=== PATIENT | female | born 1955 | race Caucasian/White ===

== ENCOUNTER 2016-06-26 14:56 | Emergency (ER) | payer MEDICARE, OTHER ==
[2016-06-26 15:06] VITALS: RESP 18
--- NOTE | 2016-06-26 16:40 | ED ---
General Adult HPI - General Chief complaint: Fall Stated complaint: rt knee and back injury Time Seen by Provider: 06/26/16 15:51 Source: patient, RN notes reviewed Mode of arrival: ambulatory Limitations: no limitations - History of Present Illness Initial comments: This is a 60-year-old female who presents with right knee pain. Patient states she [place] the [place] and fell onto the right knee and also on her backside. Patient now complains of right knee pain and right ankle pain. Patient states she twisted the right knee when she fell. Patient has been ambulating with her cane. Patient states that she did not hit her head or lose consciousness. Patient complains of some mild neck pain and lower back pain. Patient denies any change in bowel or bladder function or loss of sensation to the saddle area. Patient denies any numbness/weakness or tingling. Patient denies any headache, nausea/vomiting. Patient denies being on any anticoagulants. Patient denies any recent fever, chills, shortness breath, chest pain, abdominal pain, diarrhea, hematuria, headache, or visual changes, or any other complaints. - Related Data Home Medications Medication Instructions Recorded Confirmed Atorvastatin [Lipitor] 20 mg PO HS 04/25/16 06/26/16 Cholecalciferol [Vitamin D3] 1,000 unit PO DAILY 04/25/16 06/26/16 Cyclobenzaprine [Flexeril] 10 mg PO TID 04/25/16 06/26/16 Divalproex [Depakote] 500 mg PO BID 04/25/16 06/26/16 Echinacea 500 mg PO QID 04/25/16 06/26/16 Fiber Therapy 2 tab PO BID 04/25/16 06/26/16 Fluticasone Nasal [place] [Flonase 2 spr EA NOSTRIL DAILY PRN 04/25/16 06/26/16 Nasal [place]] Gabapentin [Neurontin] 300 mg PO TID 04/25/16 06/26/16 Ibuprofen [Motrin] 800 mg PO TID PRN 04/25/16 06/26/16 Lisinopril 40 mg PO DAILY 04/25/16 06/26/16 Multivitamins, Thera [Multivitamin] 1 tab PO DAILY 04/25/16 06/26/16 Sertraline [Zoloft] 100 mg PO DAILY 04/25/16 06/26/16 Terbinafine [LamISIL] 250 mg PO DAILY 04/25/16 06/26/16 Polyethylene Glycol 3350 [Miralax] 17 gm PO DAILY PRN 06/26/16 06/26/16 Previous Rx's Medication Instructions Recorded Diazepam [Valium] 5 mg PO BID PRN #20 tab 04/26/16 Allergies Allergy/AdvReac Type Severity Reaction Status Date / Time codeine Allergy Unknown Verified 06/26/16 15:46 oxycodone Allergy Unknown Verified 06/26/16 15:46 Penicillins Allergy Swelling Verified 06/26/16 15:46 hydrocodone AdvReac Severe Constipatio Verified 06/26/16 15:46 n Review of Systems ROS Statement: Those systems with pertinent positive or pertinent negative responses have been documented in the HPI. ROS Other: All systems not noted in ROS Statement are negative. Past Medical History Past Medical History: Fibromyalgia, Hypertension History of Any Multi-Drug Resistant Organisms: None Reported Past Surgical History: Hysterectomy Past Psychological History: Anxiety, Bipolar, Depression Smoking Status: Current every day smoker Past Alcohol Use History: None Reported Past Drug Use History: Marijuana General Exam - General Exam Comments Initial Comments: General: The patient is awake and alert, in no distress, and does not appear acutely ill. Eye: Pupils are equal, round and reactive to light, extra-ocular movements are intact. No nystagmus. There is normal conjunctiva bilaterally. No signs of icterus. Neck: Mild cervical midline tenderness, but the pain is worse to the paraspinal muscles of the cervical spine with palpation. The neck is supple, there is no JVD. Cardiovascular: There is a regular rate and rhythm. No murmur, rub or gallop is appreciated. Respiratory: Lungs are clear to auscultation, respirations are non-labored, breath sounds are equal. No wheezes, stridor, rales, or rhonchi. Musculoskeletal: Patient is tender over the medial lateral joint lines of the right knee and also to the anterior portion of the right knee. Patient is tender to palpation over the lateral malleolus into the lateral aspect of the right foot. Patient also complains of tenderness to palpation of the lumbar spine and cervical spine. Normal ROM, Strength 5/5. Sensation intact. Radial pulses equal bilaterally 2+. Dorsalis pedis pulses 2+ bilaterally, posterior tibial pulses 2+ bilaterally. Capillary refill is normal at less than 2 seconds. Neurological: A&O x 3. CN II-XII intact, There are no obvious motor or sensory deficits. Coordination appears grossly intact. Speech is normal. Skin: Skin is warm and dry and no rashes or lesions are noted. Psychiatric: Cooperative, appropriate mood & affect, normal judgment. Limitations: no limitations Course Vital Signs 06/26/16 06/26/16 15:01 17:39 Temperature 97.4 F L 98.2 F Pulse Rate 87 72 Respiratory 18 18 Rate Blood Pressure 196/100 153/86 O2 Sat by Pulse 98 93 L Oximetry Medical Decision Making - Medical Decision Making This is a 60-year-old female who presents after a fall that happened day. On physical exam Patient is tender over the medial lateral joint lines of the right knee and also to the anterior portion of the right knee. Mild ecchymosis to the anterior portion of the right knee. No effusion. Patient is tender to palpation over the lateral malleolus into the lateral aspect of the right foot. Patient also complains of tenderness to palpation of the lumbar spine and cervical spine. Normal ROM, Strength 5/5. Sensation intact. Radial pulses equal bilaterally 2+. Dorsalis pedis pulses 2+ bilaterally, posterior tibial pulses 2+ bilaterally. Capillary refill is normal at less than 2 seconds. X-rays were done and reviewed showing: X-ray lumbar spine: No acute fracture dislocation is seen in the lumbar spine. X-ray knee right: There is no acute fracture or dislocation. X-ray ankle complete right: There is no acute fracture or dislocation seen. X-ray right foot: There is no acute fracture dislocation. X-ray cervical spine: No acute fracture dislocation is seen in the cervical spine. Reports read by Dr. Márquez. I discussed the results with the patient. I discussed rest, ice, elevate and use Александр wrap for compression. Discussed use of Aircast splint as needed for right ankle. Discussed use of crutches but patient states she uses her cane for ambulation. Patient requested a prescription for crutches just in case. I discussed [id number] Tylenol and or Motrin as needed for any pain. Patient was requesting a refill of her Valium. I discussed that the patient should follow-up with her primary care provider for this. Patient was receptive to this plan patient was discharged home. Discussed return parameters. Discussed that patient should follow up with PCP in one to 2 days or return to the [facility] for any worsening symptoms or for any further concerns. Patient was receptive to this plan and patient will be discharged home. I discussed his case with attending physician Dr. Pérez who agrees the plan as stated above. Disposition Clinical Impression: Right knee sprain, Right ankle sprain Disposition: HOME SELF-CARE Condition: Good Instructions: Knee Sprain (ED) Additional Instructions: Please rest, ice, elevate and use Александр wrap for compression. Please use Aircast splint to right ankle as needed while walking. Please use [id number] Tylenol or Motrin as needed for any pain. Please follow-up with family doctor in the next 2 days of symptoms have not improved. Please return to emergency room if the symptoms increase or worsen or for any other concerns. Referrals: None,Stated [Primary Care Provider] - 1-2 days Elissa Bhakta MD [STAFF PHYSICIAN] - 1-2 days Time of Disposition: 17:21
--- NOTE | 2016-06-26 17:04 | XR ---
EXAMINATION TYPE: XR knee complete RT DATE OF EXAM: 06/26/2016 4:57 PM CLINICAL HISTORY: pain TECHNIQUE: Three views of the right knee are obtained. COMPARISON: None. FINDINGS: There is no acute fracture/dislocation. The tri-compartment joint spaces appear within no rmal limits. Small joint effusion noted. The overlying soft tissue appears unremarkable. IMPRESSION: There is no acute fracture or dislocation.ICD 10 NO FRACTURE, INITIAL EVALUATION
--- NOTE | 2016-06-26 17:05 | XR ---
EXAMINATION TYPE: XR ankle complete RT, XR foot complete RT DATE OF EXAM: 06/26/2016 4:57 PM COMPARISON: NONE HISTORY: Pain TECHNIQUE: Frontal, lateral and oblique images of the right ankle are obtained. COMPARISON: None. FINDINGS: There is no acute fracture/dislocation evident. The joint spaces appear within normal moreira its. The overlying soft tissue appears unremarkable. IMPRESSION: There is no acute fracture or dislocation seen. EXAMINATION TYPE: XR ankle complete RT, XR foot complete RT DATE OF EXAM: 06/26/2016 4:57 PM CLINICAL HISTORY: pain TECHNIQUE: Frontal, lateral and oblique images of the right foot are obtained. COMPARISON: None. FINDINGS: There is no acute fracture/dislocation evident. Well-corticated ossific densities adjacent to the tarsonavicular and cuboid are likely chronic in nature. Degenerative change first metatarsoph alangeal joint. The joint spaces appear within normal limits. The overlying soft tissue appears unr emarkable. IMPRESSION: There is no acute fracture or dislocation. ICD 10 NO FRACTURE, INITIAL EVALUATION
--- NOTE | 2016-06-26 17:06 | XR ---
EXAMINATION TYPE: XR cervical spine comp DATE OF EXAM: 06/26/2016 4:57 PM CLINICAL HISTORY: pain COMPARISON: NONE TECHNIQUE: Frontal, lateral, oblique, swimmers, and open mouth view of the cervical spine are obtaine d. FINDINGS: The cervical spine is visualized in its entirety from C1 thru the top of T1 level. It is s atisfactory in alignment without evidence of acute fracture or dislocation. The pre-vertebral soft t issue appears within normal limits. [id number]-[id number] degenerative narrowing and spondylosis. The C1-C 2 articulation is unremarkable on the open mouth view. The oblique images are within normal limits. IMPRESSION: No acute fracture or dislocation is seen in the cervical spine.ICD 10 NO FRACTURE, INITI AL EVALUATION
--- NOTE | 2016-06-26 17:06 | XR ---
EXAMINATION TYPE: XR lumbar spine 2 or 3V DATE OF EXAM: 06/26/2016 4:57 PM CLINICAL HISTORY: pain TECHNIQUE: Three views of the lumbar spine are submitted. COMPARISON: None. FINDINGS: There are 5 lumbar type vertebral bodies identified. The lumbar spine shows satisfactory alignment w ithout evidence of acute fracture or dislocation. Vertebral body heights are within normal limits. Moderate to severe degenerative narrowing at L4-5. Mild narrowing at the remaining levels. The overl aria soft tissue appears unremarkable. IMPRESSION: No acute fracture or dislocation is seen in the lumbar spine. ICD 10 NO FRACTURE, INITIAL EVALUATION
[2016-06-26 17:40] VITALS: BP 153/86; PULSE 72; TEMP 98.2
== END 2016-06-26 17:41 | disposition home or self-care (01) ==
LOC: EC 14:56
DX: S83.91XA Sprain of unspecified site of right knee, initial encounter (principal); S93.401A Sprain of unspecified ligament of right ankle, initial encounter; M54.5 Low back pain; M54.2 Cervicalgia; W01.0XXA Fall on same level from slipping, tripping and stumbling without subsequent striking against object, initial encounter; Y92.89 Other specified places as the place of occurrence of the external cause; I10 Essential (primary) hypertension; F41.9 Anxiety disorder, unspecified; F32.9 Major depressive disorder, single episode, unspecified; Z79.899 Other long term (current) drug therapy; Z88.5 Allergy status to narcotic agent; F17.200 Nicotine dependence, unspecified, uncomplicated; Z88.0 Allergy status to penicillin; Z79.51 Long term (current) use of inhaled steroids
CPT/HCPCS: 72050; 72100; 99283

== ENCOUNTER → 2016-08-04 | Outpatient (CLI) | payer MEDICARE, OTHER ==
--- NOTE | 2016-08-04 13:12 | MR ---
EXAMINATION TYPE: MR knee RT wo con DATE OF EXAM: 08/04/2016 1:00 PM COMPARISON: NONE HISTORY: acute pain in right knee TECHNIQUE: Multiplanar, multiecho imaging of the right knee is performed without IV contrast. FINDINGS: There is a small amount of joint fluid. There is grade IV chondromalacia involving the patellar apex. There is grade I to II chondromalacia i nvolving the weightbearing surface of the lateral femoral condyle. There is grade II to III chondroma lacia involving the weightbearing surface of the medial femoral condyle. There is a microtrabecular fracture of the posterior aspect of the lateral tibial plateau with some s urrounding osseous edema. There is an associated tear of the anterior cruciate ligament. This is at l east near-complete. Some residual fibers may be present. The posterior cruciate ligament is intact. T here is some minimal osseous edema involving the sulcus terminalis. There are remodeling changes in the medial compartment of the knee. Both the medial and lateral collateral ligament complexes are intact. Iliotibial band inserts normall y upon Gerdy's tubercle. The popliteus muscle and tendon are normal. Both the quadriceps and patellar tendons are intact. There is a small amount of swelling in the Hoffa fat space. I do not see evidence of a meniscal tear. IMPRESSION: 1. COMPLETE OR NEAR-COMPLETE TEAR OF THE ANTERIOR CRUCIATE LIGAMENT. 2. MICROTRABECULAR FRACTURE INVOLVING THE POSTERIOR ASPECT OF THE LATERAL TIBIAL PLATEAU. 3. CHONDROMALACIA DESCRIBED.
== END | disposition home or self-care (01) ==
LOC: RADMRIMAIN 12:22
PROVIDERS: ATTEND Family Medicine
DX: S83.511A Sprain of anterior cruciate ligament of right knee, initial encounter (principal); M22.41 Chondromalacia patellae, right knee

== ENCOUNTER 2016-12-07 14:37 | Observation (INO) | payer MEDICARE, OTHER ==
[2016-12-07 15:48] LABS: Basophils % (A) 0 %; CH 29.5; Eosinophils # (A) 0.1 k/uL (0-0.7); Eosinophils % (A) 1 %; HCT 35.4 % (34.0-46.0); HDW 2.55; HGB 12.8 gm/dL (11.4-16.0); Luc # (Auto) 0.17; Luc % (Auto) 2; Lymphocytes # (A) 3.4 k/uL (1.0-4.8); Lymphocytes % (A) 43 %; MCH 30.7 pg (25.0-35.0); MCHC 36.2 g/dL (31.0-37.0); MCV 84.8 fL (80.0-100.0); Mean Platelet Volume 8.6; Monocytes # (A) 0.4 k/uL (0-1.0); Monocytes % (A) 5 %; Neutrophils # (A) 3.9 k/uL (1.3-7.7); Neutrophils % (A) 49 %; RBC 4.18 m/uL (3.80-5.40); RDW 14.4 % (11.5-15.5); WBC 7.9 k/uL (3.8-10.6); WBC (Perox) 7.62
[2016-12-07 15:58] LABS: ALT 31 U/L (9-52); AST 32 U/L (14-36); Alkaline Phosphatase 58 U/L (38-126); Anion Gap 11 mmol/L; Blood Urea Nitrogen 18 mg/dL (7-17); Carbon Dioxide 23 mmol/L (22-30); Chloride 109 mmol/L (98-107); Glucose 78 mg/dL (74-99); Magnesium 1.9 mg/dL (1.6-2.3); Non-African American GFR(MDRD) >60 (>60 ml/min/1.73 sqM); Potassium 4.5 mmol/L (3.5-5.1); Sodium 143 mmol/L (137-145); Total Bilirubin 0.4 mg/dL (0.2-1.3); Total Protein 7.2 g/dL (6.3-8.2)
[2016-12-07 16:03] LABS: INR 1.2 (<1.1); Partial Thromboplastin Time 24.7 sec (22.0-30.0); Prothrombin Time 11.7 sec (9.0-12.0)
[2016-12-07 16:07] LABS: Creatine Kinase 129 U/L (30-135)
--- NOTE | 2016-12-07 16:12 | XR ---
EXAMINATION TYPE: XR chest 2V DATE OF EXAM: 12/07/2016 COMPARISON: 04/25/2016 HISTORY: 61-year-old female with chest pain TECHNIQUE: PA and lateral views FINDINGS: Heart is normal size. Similar tortuosity of the aorta. Mild diffuse interstitial prominence of the ch ronic appearance. No consolidation or pleural effusion. Strandy atelectasis at the left base. IMPRESSION: Chronic changes without acute cardiopulmonary process.
[2016-12-07 16:20] LABS: Creatine Kinase MB 1.8 ng/mL (0.0-2.4); Troponin I <0.012 ng/mL (0.000-0.034)
[2016-12-07] MEDS ORDERED: ONDANSETRON 4 MG/2 ML VIAL IVP STA (16:43)
[2016-12-07] MEDS ORDERED: ASPIRIN 325 MG TAB PO STA (16:43)
[2016-12-07] MEDS ORDERED: MORPHINE SULFATE 4 MG/ML SYRINGE IVP STA (16:45)
[2016-12-07] MEDS ORDERED: ONDANSETRON 4 MG/2 ML VIAL IVP PRN (16:54)
[2016-12-07] MEDS ORDERED: NALOXONE 0.4 MG/ML 1 ML VIAL IV PRN (16:54)
[2016-12-07] MEDS ORDERED: NITROGLYCERIN SL TABS 0.4 MG TAB SUBLINGUAL PRN (19:33)
[2016-12-07] MEDS: MORPHINE SULFATE 4 MG/ML SYRINGE IV PRN (19:50)
[2016-12-07] MEDS ORDERED: FLUTICASONE 50MCG/SPRAY NASAL 16GM EA NOSTRIL PRN (20:28)
[2016-12-07] MEDS ORDERED: CYCLOBENZAPRINE 10 MG TAB PO PRN (20:28)
[2016-12-07] MEDS ORDERED: IBUPROFEN 800 MG TAB PO PRN (20:28)
[2016-12-07] MEDS: GABAPENTIN 300 MG CAP PO SCH (21:25)
[2016-12-07] MEDS: DIVALPROEX 500 MG TABLET.DR PO SCH (21:25)
[2016-12-07 22:15] LABS: Creatine Kinase 113 U/L (30-135)
[2016-12-07 22:28] LABS: Creatine Kinase MB 1.8 ng/mL (0.0-2.4); Troponin I <0.012 ng/mL (0.000-0.034)
[2016-12-08] MEDS: MORPHINE SULFATE 4 MG/ML SYRINGE IV PRN ×3 (00:21→19:41)
--- NOTE | 2016-12-08 00:54 | ED ---
General Adult HPI - General Chief complaint: Chest Pain Stated complaint: Sent by PCP Abd EKG Time Seen by Provider: 12/07/16 15:16 Source: patient, RN notes reviewed Mode of arrival: wheelchair Limitations: no limitations - History of Present Illness Initial comments: 7-year-old female with past medical history of hypertension, fibromyalgia, and osteoarthritis presents with left-sided and mid chest pain. Patient describes the pain as a pressure-like sensation. Patient does associate the pain with some nausea and no vomiting. States the pain began approximately one hour prior to arrival. Denies any abdominal pain. Patient has never had chest pain in the past. She has had no cardiology workup. She does have a positive family history of heart disease in her father who had a myocardial infarction at the age of 54. Patient recently quit tobacco approximately 2 weeks ago. - Related Data Home Medications Medication Instructions Recorded Confirmed Atorvastatin [Lipitor] 20 mg PO DAILY 04/25/16 12/07/16 Cyclobenzaprine [Flexeril] 10 mg PO TID PRN 04/25/16 12/07/16 Divalproex [Depakote] 500 mg PO TID 04/25/16 12/07/16 Fluticasone Nasal [place] [Flonase 2 spr EA NOSTRIL DAILY PRN 04/25/16 12/07/16 Nasal [place]] Gabapentin [Neurontin] 300 mg PO DAILY 04/25/16 12/07/16 Ibuprofen [Motrin] 800 mg PO TID PRN 04/25/16 12/07/16 Lisinopril 40 mg PO DAILY 04/25/16 12/07/16 Multivitamins, Thera [Multivitamin] 1 tab PO DAILY 04/25/16 12/07/16 Sertraline [Zoloft] 100 mg PO DAILY 04/25/16 12/07/16 Echinacea 780mg 1,560 mg PO TID 12/07/16 12/07/16 Gabapentin [Neurontin] 600 mg PO HS 12/07/16 12/07/16 Levothyroxine Sodium [Synthroid] 50 mcg PO DAILY 12/07/16 12/07/16 Allergies Allergy/AdvReac Type Severity Reaction Status Date / Time codeine Allergy Unknown Verified 12/07/16 16:10 oxycodone Allergy Unknown Verified 12/07/16 16:10 Penicillins Allergy Swelling Verified 12/07/16 16:10 hydrocodone AdvReac Severe Constipatio Verified 12/07/16 16:10 n Review of Systems ROS Statement: Those systems with pertinent positive or pertinent negative responses have been documented in the HPI. ROS Other: All systems not noted in ROS Statement are negative. Past Medical History Past Medical History: Fibromyalgia, Hyperlipidemia, Hypertension, Thyroid Disorder Additional Past Medical History / Comment(s): "FATTY LIVER" " I HAD A HEART MURMUR WHEN I WAS WITH MY SON IN 1980" "IN 1976 HOSPITALIZED A WEEK FOR KIDNEY INFECETION", IBS, PT ON DEPAKOTE FOR BIPOLAR NOT SEIZURES.DDD/SPINE, "HERNIATED DISCS", PAST MIGRAINES,NEUROPATHY, History of Any Multi-Drug Resistant Organisms: None Reported Past Surgical History: Hysterectomy, Tonsillectomy Additional Past Surgical History / Comment(s): "TOTAL HYSTERECTOMY", COLONOSCOPY /POLYPECTOMY(BENIGN) Past Anesthesia/Blood Transfusion Reactions: Motion Sickness Additional Past Anesthesia/Blood Transfusion Reaction / Comment(s): IN THE AFTER SX HAD DIFFICULTY WAKING. CLAUSTERPHOBIA. Smoking Status: Former smoker - Past Family History Father Family Medical History: Hypertension, Osteoarthritis (OA) Mother Family Medical History: Cancer, Coronary Artery Disease (CAD), Myocardial Infarction (NM) General Exam Limitations: no limitations General appearance: alert, in no apparent distress Head exam: Present: atraumatic, normocephalic Eye exam: Present: normal appearance, PERRL ENT exam: Present: normal exam, mucous membranes moist Neck exam: Present: normal inspection, full ROM Respiratory exam: Present: normal lung sounds bilaterally, respiratory distress Cardiovascular Exam: Present: regular rate, normal rhythm GI/Abdominal exam: Present: soft. Absent: distended, tenderness Extremities exam: Present: normal inspection, normal capillary refill. Absent: pedal edema Neurological exam: Present: alert, oriented X3 Psychiatric exam: Present: normal affect, normal mood Skin exam: Present: warm, dry. Absent: diaphoretic Course Vital Signs 12/07/16 12/07/16 12/07/16 14:40 15:39 16:42 Temperature 99.0 F 97.8 F Pulse Rate 88 70 Pulse Rate [ 76 Right Radial] Respiratory 20 18 Rate Blood Pressure 133/88 102/66 O2 Sat by Pulse 98 96 Oximetry 12/07/16 17:30 Temperature 97.9 F Pulse Rate 79 Pulse Rate [ Right Radial] Respiratory 18 Rate Blood Pressure 131/88 O2 Sat by Pulse 96 Oximetry EKG Findings - EKG Comments: EKG Findings:: EKG obtained at 1524 shows normal sinus rhythm at a rate of 73, WI interval 1:30, QS duration 78, QTC is 484. There is no ST segment elevation , there is biphasic T wave in V2 and T-wave inversion in the 3 4 5 and 6. EKG obtained at 1720 shows a ventricular rate of 65 normal sinus rhythm, WI interval 134, QRS duration 84, QTC is 42, no change in T waves from previous EKG , no worsening signs of ischemia. Medical Decision Making - Medical Decision Making 61-year-old female presenting with a one hour history of left-sided chest pressure and nausea. Patient has had no cardiac workup in the past. EKG does show T-wave abnormality in the precordium however this is unchanged over approximately 2 hour period. Patient's lipase is mildly elevated and although this is unlikely to be the cause of her pain she will be treated with IV fluids and pain medication. Patient will be placed in observation for serial cardiac enzymes and cardiology evaluation. - Lab Data Result diagrams: 12/07/16 15:36 12/07/16 15:36 Lab Results 12/07/16 12/07/16 12/07/16 Range/Units 15:36 15:36 15:36 WBC 7.9 (3.8-10.6) k/uL RBC 4.18 (3.80-5.40) m/uL Hgb 12.8 (11.4-16.0) gm/dL Hct 35.4 (34.0-46.0) % MCV 84.8 (80.0-100.0) fL MCH 30.7 (25.0-35.0) pg MCHC 36.2 (31.0-37.0) g/dL RDW 14.4 (11.5-15.5) % Plt Count 181 (150-450) k/uL Neutrophils % 49 % Lymphocytes % 43 % Monocytes % 5 % Eosinophils % 1 % Basophils % 0 % Neutrophils # 3.9 (1.3-7.7) k/uL Lymphocytes # 3.4 (1.0-4.8) k/uL Monocytes # 0.4 (0-1.0) k/uL Eosinophils # 0.1 (0-0.7) k/uL Basophils # 0.0 (0-0.2) k/uL PT (9.0-12.0) sec INR (<1.1) APTT (22.0-30.0) sec Sodium 143 (137-145) mmol/L Potassium 4.5 (3.5-5.1) mmol/L Chloride 109 H (98-107) mmol/L Carbon Dioxide 23 (22-30) mmol/L Anion Gap 11 mmol/L BUN 18 H (7-17) mg/dL Creatinine 0.70 (0.52-1.04) mg/dL Est GFR (MDRD) Af Amer >60 (>60 ml/min/1.73 sqM) Est GFR (MDRD) Non-Af >60 (>60 ml/min/1.73 sqM) Glucose 78 (74-99) mg/dL Calcium 10.0 (8.4-10.2) mg/dL Magnesium 1.9 (1.6-2.3) mg/dL Total Bilirubin 0.4 (0.2-1.3) mg/dL AST 32 (14-36) U/L ALT 31 (9-52) U/L Alkaline Phosphatase 58 (38-126) U/L Total Creatine Kinase 129 (30-135) U/L CK-MB (CK-2) 1.8 (0.0-2.4) ng/mL CK-MB (CK-2) Rel Index 1.4 Troponin I <0.012 (0.000-0.034) ng/mL NT-Pro-B Natriuret Pep pg/mL Total Protein 7.2 (6.3-8.2) g/dL Albumin 4.7 (3.5-5.0) g/dL Lipase 331 H (23-300) U/L Stool Occult Blood (Negative) 12/07/16 12/07/16 12/07/16 Range/Units 15:36 15:36 15:36 WBC (3.8-10.6) k/uL RBC (3.80-5.40) m/uL Hgb (11.4-16.0) gm/dL Hct (34.0-46.0) % MCV (80.0-100.0) fL MCH (25.0-35.0) pg MCHC (31.0-37.0) g/dL RDW (11.5-15.5) % Plt Count (150-450) k/uL Neutrophils % % Lymphocytes % % Monocytes % % Eosinophils % % Basophils % % Neutrophils # (1.3-7.7) k/uL Lymphocytes # (1.0-4.8) k/uL Monocytes # (0-1.0) k/uL Eosinophils # (0-0.7) k/uL Basophils # (0-0.2) k/uL PT 11.7 (9.0-12.0) sec INR 1.2 (<1.1) APTT 24.7 (22.0-30.0) sec Sodium (137-145) mmol/L Potassium (3.5-5.1) mmol/L Chloride (98-107) mmol/L Carbon Dioxide (22-30) mmol/L Anion Gap mmol/L BUN (7-17) mg/dL Creatinine (0.52-1.04) mg/dL Est GFR (MDRD) Af Amer (>60 ml/min/1.73 sqM) Est GFR (MDRD) Non-Af (>60 ml/min/1.73 sqM) Glucose (74-99) mg/dL Calcium (8.4-10.2) mg/dL Magnesium (1.6-2.3) mg/dL Total Bilirubin (0.2-1.3) mg/dL AST (14-36) U/L ALT (9-52) U/L Alkaline Phosphatase (38-126) U/L Total Creatine Kinase (30-135) U/L CK-MB (CK-2) (0.0-2.4) ng/mL CK-MB (CK-2) Rel Index Troponin I (0.000-0.034) ng/mL NT-Pro-B Natriuret Pep 1240 pg/mL Total Protein (6.3-8.2) g/dL Albumin (3.5-5.0) g/dL Lipase (23-300) U/L Stool Occult Blood Negative (Negative) Disposition Clinical Impression: Chest pain Disposition: ADMITTED IP TO THIS [facility] Condition: Stable Decision to Admit Reason: Admit from [facility]
[2016-12-08 03:47] LABS: Basophils % (A) 0 %; CH 29.4; CHCM 32.9; Eosinophils # (A) 0.1 k/uL (0-0.7); Eosinophils % (A) 1 %; HCT 38.3 % (34.0-46.0); HDW 2.47; HGB 12.9 gm/dL (11.4-16.0); Luc % (Auto) 3; Lymphocytes # (A) 3.1 k/uL (1.0-4.8); Lymphocytes % (A) 38 %; MCH 30.2 pg (25.0-35.0); MCHC 33.6 g/dL (31.0-37.0); Mean Platelet Volume 8.1; Monocytes # (A) 0.5 k/uL (0-1.0); Monocytes % (A) 6 %; Neutrophils # (A) 4.3 k/uL (1.3-7.7); Neutrophils % (A) 53 %; RBC 4.26 m/uL (3.80-5.40); RDW 14.2 % (11.5-15.5); WBC 8.2 k/uL (3.8-10.6); WBC (Perox) 8.65
[2016-12-08 03:57] LABS: MCV 89.9 fL (80.0-100.0)
[2016-12-08 04:00] LABS: Anion Gap 11 mmol/L; Blood Urea Nitrogen 21 mg/dL (7-17); Calcium 9.6 mg/dL (8.4-10.2); Carbon Dioxide 26 mmol/L (22-30); Chloride 103 mmol/L (98-107); Glucose 90 mg/dL (74-99); Non-African American GFR(MDRD) >60 (>60 ml/min/1.73 sqM); Potassium 4.4 mmol/L (3.5-5.1); Sodium 140 mmol/L (137-145)
[2016-12-08 04:03] LABS: Creatine Kinase 112 U/L (30-135)
[2016-12-08 04:16] LABS: Creatine Kinase MB 1.9 ng/mL (0.0-2.4); Troponin I <0.012 ng/mL (0.000-0.034)
[2016-12-08] MEDS: LEVOTHYROXINE 50 MCG TAB PO SCH (06:28)
[2016-12-08] MEDS ORDERED: ATORVASTATIN 20 MG TAB PO SCH (09:00)
[2016-12-08] MEDS ORDERED: ASPIRIN 325 MG TAB PO STA (09:12)
[2016-12-08] MEDS ORDERED: SODIUM CHLORIDE 0.9% 1,000 ML in EMPTY BAG 1 BAG IV ONE (09:12)
[2016-12-08] MEDS ORDERED: ALPRAZolam 0.5 MG TAB PO PRN (09:12)
[2016-12-08] MEDS ORDERED: ATORVASTATIN 80 MG TAB PO STA (09:12)
[2016-12-08] MEDS ORDERED: ALPRAZolam 0.25 MG TAB PO PRN (09:12)
[2016-12-08] MEDS ORDERED: NITROGLYCERIN SL TABS 0.4 MG TAB SUBLINGUAL PRN (09:12)
[2016-12-08] MEDS: LISINOPRIL 20 MG TAB PO SCH (09:41)
[2016-12-08] MEDS: SERTRALINE 100 MG TAB PO SCH (09:42)
[2016-12-08] MEDS: DIVALPROEX 500 MG TABLET.DR PO SCH ×3 (09:42→19:42)
[2016-12-08] MEDS: GABAPENTIN 300 MG CAP PO SCH ×2 (09:42→19:41)
[2016-12-08] MEDS: SODIUM CHLORIDE 0.9% 1,000 ML IV SCH ×3 (09:48→15:18)
--- NOTE | 2016-12-08 13:33 | CONS ---
Paola Leonard is a 61-year-old lady with a diagnosis of fibromyalgia, hypertension, hypercholesterolemia, degenerative joint disease and also has some underlying depression. She also had hypothyroidism. She apparently last time visited a hospital was in [place] about a year ago. She went to see her primary care physician, Dr. Galan, and indicated to her that she has chest pain all the time. EKG was performed, revealed precordial ST-T changes raising the possibility of ischemia and she has been advised to come to the hospital. She denies any chest discomfort at the time of my evaluation, but yesterday and also for the last year on and off she feels a pressure like sensation in random fashion almost always unrelated to physical activity. About 2 weeks ago, she quit smoking. She has a family history of premature CAD with her father having had an GA at 54 years of age. She is resting comfortably without symptoms. PAST MEDICAL HISTORY: 1. Hypercholesterolemia. 2. Hypertension. 3. History of depression. 4. Hypothyroidism. 5. No documented evidence of prior myocardiac infarction or CVA. She is status post hysterectomy and tonsillectomy. Medications at home include Gabapentin, Zoloft, Synthroid 50 mcg daily, multivitamins, Lipitor 20 mg daily, Flexeril 10 mg daily, lisinopril 40 mg daily. She also takes Flonase nasal spray and Neurontin. ALLERGIES: OXYCODONE, CODEINE, PENICILLIN. Review of systems are unremarkable other than above mentioned facts. On examination, blood pressure is 110/70, pulse rate 70 per minute and regular. HEENT: Unremarkable. Fundus was not examined by me. NECK: Supple. No JVD. I do not hear a carotid bruit. There is no thyromegaly. Heart exam reveals S1 and S2 heard normally. No rub, murmur or gallop. Lungs are clear. Abdomen is soft, nontender. Lower extremities reveal normal pulses. No edema. Central nervous system is normal. EKG revealed a sinus mechanism with precordial ST-T changes as well as ST-T change in 1 and aVL, raising the possibility of ischemia in the anterolateral wall. Laboratory data revealed unremarkable troponins. Three sets are available. Renal function is normal. Hemoglobin is 12.9. Her lipase was slightly elevated, but it is back in the normal range. IMPRESSION: 1. Atypical chest pain. 2. Abnormal EKG, cannot rule out ischemia. 3. Hypertension. 4. Hyperlipidemia. 5. Family history of coronary artery disease. 6. History of smoking, which she quit 2 weeks ago. RECOMMENDATIONS: I am recommending that we will obtain an old EKG from [place]. If this EKG is similar to the one here, I will proceed with a Lexiscan stress test. However, if the EKG changes are new I would recommend cardiac catheterization. Rationale, risks, benefits and options are explained to the patient. She understands all details and wishes to proceed with the procedure if the EKG changes are new. Thank you very much for the consult. [place]
[2016-12-08] MEDS ORDERED: SODIUM CHLORIDE 0.9% 1,000 ML IV ONE (13:40)
[2016-12-08] MEDS ORDERED: MIDAZOLAM 2 MG/2 ML VIAL IVP ONE (13:50)
[2016-12-08] MEDS ORDERED: LIDOCAINE 2% INJ 20 MG/ML SQ ONE (13:51)
[2016-12-08] MEDS: VERAPAMIL SYRINGE (5 MG/10 ML) INTRAARTER ONE ×2 (13:55→14:13)
[2016-12-08] MEDS ORDERED: HEPARIN SODIUM 1,000 UN/ML (10ML VL) IV ONE (13:56)
[2016-12-08] MEDS ORDERED: IOHEXOL 350 MG/ML 100 ML BOTTLE INJ ONE (14:13)
[2016-12-08] MEDS ORDERED: RX INFO: IV CONTRAST WAS GIVEN 1 EACH MISC MISCELLANE PRN (14:24)
[2016-12-08] MEDS: MULTIVITAMINS, THERA 1 EACH TAB PO SCH (15:16)
--- NOTE | 2016-12-08 18:48 | HP ---
CHIEF COMPLAINT: Chest pain. HISTORY OF PRESENT ILLNESS: Ms. Rick is a 61 year old female with known history of hypertension, diabetes mellitus, fibromyalgia, and osteoarthritis, came to the hospital with complaints of left sided mid sternal chest pain which is pressure like sensation associated with nausea and no vomiting. The pain began approximately one hour prior to admission. The patient seen by primary care physician and says that the patient EKG was abnormal and sent to the hospital. The patient does have family history of heart disease in her father who had MA age 54. The patient also has history of smoking, quit about two and one half weeks ago. Otherwise, the patient denied any recent illnesses. No sick contacts. No recent travel. REVIEW OF SYSTEMS: CONSTITUTIONAL: No fever, no chills. RESPIRATORY: No cough or sputum production. CARDIOVASCULAR: No chest pain. No shortness of breath. No leg swelling. No palpitations. ABDOMINAL: No nausea or vomiting. No abdominal pain. No diarrhea. GENITOURINARY: No dysuria or hematuria. ENDOCRINE: No heat or cold intolerance. Negative. MUSCULOSKELETAL: No joint swelling or deformities. NEUROLOGICAL: No headache, dizziness or lightheadedness. No numbness or tingling. All other 14 point review of systems negative except as above. PAST MEDICAL HISTORY: Includes fibromyalgia, hypertension, hyperlipidemia, hypothyroidism, fatty liver, bipolar disorder, herniated disc and neuropathy. PAST SURGICAL HISTORY: Hysterectomy, tonsillectomy. SOCIAL HISTORY: The patient is a former smoker, quit two and one half weeks ago. Occasional alcohol use. Denied any drugs or IVDU. FAMILY HISTORY: Father had hypertension, osteoarthritis and MA. Mother had cancer, coronary artery disease and MA. Home medications include: 1. Lipitor. 2. Flexeril. 3. Depakote. 4. Flonase. 5. Neurontin. 6. Motrin. 7. Lisinopril. 8. Multivitamins. 9. Zoloft. 10. Echinacea. 11. Neurontin. 12. Levothyroxine. ALLERGIES: CODEINE, PENICILLIN, HYDROCODONE. PHYSICAL EXAMINATION: A 61 year old female lying in the bed, awake, alert and oriented times three. Appears to be in no apparent distress. Vitals: Blood pressure 99/60 with a pulse rate 66, respiratory rate 16, temperature afebrile. Pulse ox 93% on room air. HEENT: Atraumatic, normocephalic. Neck is supple. No JVD. CVS: S1, S2 heard. No murmurs. No gallops. Lungs bilateral air entry is present. No wheezing. No crackles. Nonlabored breathing. Abdomen is soft, nontender. Bowel sounds present. UNIVERSITY ARCHIVIST: Awake, alert and oriented times three. No focal deficits. Extremities no edema. Pulses palpable bilaterally. No clubbing or cyanosis. Psychiatric: Cooperative. Laboratory data: WBC 7.9, hemoglobin 12.8, platelets 181. INR 1.2. D. dimer 0.49. Sodium 143, potassium 4.5, chloride 109. Bicarb 23. BUN 18, creatinine 0.7. Liver enzymes are not elevated. NT-proBNP is 1240. Lipase 331. ( ) negative. Chest x-ray ( ) without acute pulmonary process. EKG showed normal sinus rhythm. Precordial ST-T wave changes in Lead I and AVL. Possibility of ischemia in the anterolateral wall. IMPRESSION: 1. Atypical chest pain with abnormal EKG, rule out acute coronary syndrome and cardiology recommended cardiac catheterization. 2. Hypertension. 3. Hyperlipidemia. 4. Family history of coronary artery disease with myocardial infarction in her father at age 54. 5. History of smoking, quit two weeks ago. 6. Fibromyalgia. 7. Degenerative joint disease. 8. Fatty liver. 9. Bipolar disorder. 10. Smoking cessation, counselled. DISCUSSION AND PLAN: The patient will be continued on telemetry, serial EKGs and troponins are negative. The patient undergoing cardiac catheterization today. D. dimer is not elevated. Unlikely pulmonary embolism at this time. We will continue the current management and further recommendations based on clinical course. Currently the patient is chest pain free. MTDD
[2016-12-08] MEDS: METOPROLOL TARTRATE 12.5 MG TAB PO SCH (18:51)
[2016-12-08 19:10] VITALS: RESP 18
--- NOTE | 2016-12-08 20:38 | CC ---
DATE OF PROCEDURE: 12/08/2016 PROCEDURE: Left heart catheterization, coronary angiography and left ventriculography. PERFORMED BY: Dr. Lesia Sanderson CLINICAL INFORMATION: Mrs. Paola Leonard is a 61-year-old lady with a history of hypertension and hypercholesterolemia who was seen by me this morning in consultation when she was sent to the hospital by her primary care physician with a severely abnormal EKG and exertional chest tightness and shortness of breath. Her troponins are normal, but EKG revealed significant precordial ST-T changes, raising the possibility of ischemia. I also obtained an old EKG from 18 months ago which was quite normal. Given these new EKG changes, exertional chest tightness and constant chest pressure and shortness of breath, I advised coronary angiography. Risks, benefits, options and rationale were explained. She was brought in for the procedure after due discussion. PROCEDURE NOTE: Under local anesthesia and strict aseptic precautions, a 6 Cypriot introducer was placed in the right radial artery. Using an Ultimate 1 catheter, I performed selective coronary angiography of the left system. A JR3.5 catheter was used for right coronary artery. A pigtail catheter was used to perform LV gram. The sheath was taken out and a short Vasc band was applied. Saturation in the fingers of the right hand was 98%. Good hemostasis was secured. She was sent to the room in stable condition. Moderate conscious sedation with Versed and Benadryl was provided for a total duration of 30 minutes. CARDIAC CATHETERIZATION FINDINGS The left ventricular end-diastolic pressure was 12 mmHg. It went up to 22 after LV gram. There was no gradient across the aortic valve. CORONARY ANGIOGRAPHY FINDINGS RIGHT CORONARY ARTERY: Technically a dominant vessel has minor irregularities. In the proximal portion there is a smooth narrowing of about 30% noted which is not significant. The caliber of the vessel improves. It distally bifurcates into PDA and PLV, both of which have minor irregularities. The dominant RCA has a 35% proximal lesion. No significant other lesions. LEFT MAIN CORONARY ARTERY: Short patent vessel that immediately bifurcates into LAD and circumflex. No significant disease in left main. LEFT ANTERIOR DESCENDING CORONARY ARTERY: Good-caliber vessel extends along the anterior wall. It gives off septal and diagonal branches. In the mid portion there is an eccentric area of narrowing of about 35% to 40% at the origin of a diagonal branch. The caliber of the vessel then improves. It runs all the way to the apex, supplying a sizable amount of myocardium. Mid LAD therefore has a 35% to 40% lesion, gives off septal and diagonal branches. There is mild calcification noted. LEFT POSTERIOR CIRCUMFLEX CORONARY ARTERY: Technically this is a non-dominant, good-caliber, good-distribution vessel that gives off a large obtuse marginal distally that runs and supplies sizable amount of myocardium. There are minor irregularities. No significant disease in the circumflex system. LEFT VENTRICULOGRAM: This was performed in 30-degree BUTLER projection and revealed a left ventricle which is of normal size with good systolic function. Ejection fraction is 60% without mitral regurgitation. FINAL IMPRESSION: This patient has a right-dominant system. Slightly elevated filling pressures. Ejection fraction is 60%. There is a 40% mid LAD lesion and a 35% proximal RCA lesion. Circumflex is free of significant disease. RECOMMENDATIONS: Aggressive medical therapy with risk factor modification. Increase Lipitor as advised. Patient will be discharged tomorrow if she is stable and will follow with her primary care physician. I will see her in a week. [place]
[2016-12-09] MEDS: MORPHINE SULFATE 4 MG/ML SYRINGE IV PRN (01:29)
[2016-12-09] MEDS: SODIUM CHLORIDE 0.9% 1,000 ML IV SCH ×3 (01:30→09:57)
[2016-12-09] MEDS: LEVOTHYROXINE 50 MCG TAB PO SCH (06:34)
[2016-12-09] MEDS ORDERED: ATORVASTATIN 40 MG TAB PO SCH (09:00)
--- NOTE | 2016-12-09 09:39 | PN ---
Mrs. Leonard had a cardiac cath yesterday, right radial approach. The site is clean and dry with excellent pulse. She had about 35 to 40% LAD disease and also mild disease in the RCA. Continued medical therapy with addition of beta osbaldo and increase in Lipitor was advised. She is asymptomatic. Vital signs are stable. S1, S2 heard normally. Lungs are clear. Abdomen and lower extremity exam in unchanged. Right radial cath site is clean and dry with excellent pulse. She can be discharged today and I will see her in the office at 3:30 p.m. on Sunday. Discharge instructions regarding activity, diet and restrictions were discussed. [place]
[2016-12-09] MEDS: LISINOPRIL 20 MG TAB PO SCH (09:50)
[2016-12-09] MEDS: SERTRALINE 100 MG TAB PO SCH (09:50)
[2016-12-09] MEDS: DIVALPROEX 500 MG TABLET.DR PO SCH (09:50)
[2016-12-09] MEDS: METOPROLOL TARTRATE 12.5 MG TAB PO SCH (09:51)
[2016-12-09] MEDS: GABAPENTIN 300 MG CAP PO SCH (09:51)
[2016-12-09] MEDS: MULTIVITAMINS, THERA 1 EACH TAB PO SCH (11:51)
[2016-12-09 12:19] VITALS: BP 112/74; PULSE 63; TEMP 98.7
== END 2016-12-09 14:50 | disposition home or self-care (01) ==
LOC: EC 14:37 → 3OBS 16:59
PROVIDERS: ADMIT Internal Medicine; ATTEND Internal Medicine
DX: R07.89 Other chest pain (principal); I25.9 Chronic ischemic heart disease, unspecified; R94.31 Abnormal electrocardiogram [ECG] [EKG]; E11.9 Type 2 diabetes mellitus without complications; M79.7 Fibromyalgia; M19.90 Unspecified osteoarthritis, unspecified site; I10 Essential (primary) hypertension; E78.5 Hyperlipidemia, unspecified; K76.0 Fatty (change of) liver, not elsewhere classified; F31.9 Bipolar disorder, unspecified; K58.9 Irritable bowel syndrome, unspecified; G43.909 Migraine, unspecified, not intractable, without status migrainosus; G62.9 Polyneuropathy, unspecified; E03.9 Hypothyroidism, unspecified; Z82.49 Family history of ischemic heart disease and other diseases of the circulatory system; Z87.891 Personal history of nicotine dependence; Z79.899 Other long term (current) drug therapy; Z88.5 Allergy status to narcotic agent; Z88.0 Allergy status to penicillin
CPT/HCPCS: 96374 ×2; 96375 ×2; 99285 ×2; 96376 ×2; 36415; 94760; 93005; 93458; 85379; 83880; 80053; 80048; 82550 ×2; 82553 ×2; 83690 ×2; 83735; 84484 ×2; 85025 ×2; 85610; 85730; 82272; 71020; G0378 ×3; C1769 ×3; C1894; J2001; J2250; J2270 ×3; Q9967; J2405; J1644

== ENCOUNTER 2017-04-23 14:46 | Emergency (ER) | payer MEDICARE, OTHER ==
[2017-04-23] MEDS ORDERED: SODIUM CHLORIDE 0.9% 500 ML IV STA (16:18)
[2017-04-23] MEDS ORDERED: KETOROLAC 30 MG/ML 1 ML VIAL IVP STA (16:34)
[2017-04-23] MEDS ORDERED: ONDANSETRON 4 MG/2 ML VIAL IVP STA (16:34)
[2017-04-23 16:57] LABS: Appearance,Urine Clear (Clear); Basophils # (A) 0.1 k/uL (0-0.2); Basophils % (A) 1 %; Bilirubin,Urine Negative (Negative); CH 29.2; CHCM 32.7; Eosinophils # (A) 0.3 k/uL (0-0.7); Eosinophils % (A) 2 %; Glucose,Urine (UA) Negative (Negative); HCT 40.7 % (34.0-46.0); HDW 2.51; HGB 13.2 gm/dL (11.4-16.0); Ketones,Urine Trace (Negative); Leukocyte Esterase,Urine Negative (Negative); Luc # (Auto) 0.24; Luc % (Auto) 2; Lymphocytes # (A) 4.5 k/uL (1.0-4.8); Lymphocytes % (A) 43 %; MCH 29.3 pg (25.0-35.0); MCHC 32.5 g/dL (31.0-37.0); MCV 90.2 fL (80.0-100.0); Mean Platelet Volume 8.7; Monocytes # (A) 0.8 k/uL (0-1.0); Monocytes % (A) 8 %; Neutrophils # (A) 4.5 k/uL (1.3-7.7); Neutrophils % (A) 44 %; Nitrite,Urine Negative (Negative); PH, Urine 7.5 (5.0-8.0); Protein,Urine Negative (Negative); RBC 4.52 m/uL (3.80-5.40); RDW 15.2 % (11.5-15.5); Specific Gravity,Urine 1.018 (1.001-1.035); UA Billing (MACRO vs. MICRO) CHEM; WBC 10.3 k/uL (3.8-10.6); WBC (Perox) 10.54
[2017-04-23 17:08] LABS: ALT 99 U/L (9-52); AST 60 U/L (14-36); Alkaline Phosphatase 59 U/L (38-126); Amylase 109 U/L (30-110); Anion Gap 8 mmol/L; Blood Urea Nitrogen 14 mg/dL (7-17); Calcium 9.5 mg/dL (8.4-10.2); Carbon Dioxide 23 mmol/L (22-30); Chloride 110 mmol/L (98-107); Glucose 85 mg/dL (74-99); Non-African American GFR(MDRD) >60 (>60 ml/min/1.73 sqM); Potassium 4.6 mmol/L (3.5-5.1); Sodium 141 mmol/L (137-145); Total Bilirubin 0.2 mg/dL (0.2-1.3); Total Protein 6.8 g/dL (6.3-8.2)
--- NOTE | 2017-04-23 17:34 | ED ---
Abdominal Pain HPI - General Chief Complaint: Abdominal Pain Stated Complaint: blood in urine/abdominal pain Time Seen by Provider: 04/23/17 16:17 Source: patient, RN notes reviewed Mode of arrival: ambulatory Limitations: no limitations - History of Present Illness Initial Comments: This a 61-year-old female presents emergency Department chief complaint abdominal pain. Patient states pain started this morning in the lower abdomen. Patient is also on she urination or sore throat was some blood in her urine. She states that she's no vaginal bleeding or vaginal discharge. Patient's her prior hysterectomy. Patient denies any hematemesis, coffee-ground emesis, melena or hematochezia. Patient states that she has cramping type pain in the lower abdomen. Patient also states she has mild low back pain. Patient doesn' t some nausea vomiting. Patient denies any chest pain or shortness breath no fever no chills. - Related Data Home Medications Medication Instructions Recorded Confirmed Cyclobenzaprine [Flexeril] 10 mg PO TID PRN 04/25/16 04/23/17 Divalproex [Depakote] 500 mg PO BID 04/25/16 04/23/17 Gabapentin [Neurontin] 300 mg PO DAILY 04/25/16 04/23/17 Ibuprofen [Motrin] 800 mg PO TID PRN 04/25/16 04/23/17 Lisinopril 40 mg PO DAILY 04/25/16 04/23/17 Sertraline [Zoloft] 100 mg PO DAILY 04/25/16 04/23/17 Gabapentin [Neurontin] 600 mg PO HS 12/07/16 04/23/17 Levothyroxine Sodium [Synthroid] 50 mcg PO DAILY 12/07/16 04/23/17 ALPRAZolam [Xanax] 0.25 mg PO HS 04/23/17 04/23/17 Echinacea 980mg 980 mg PO BID 04/23/17 04/23/17 Metoprolol Tartrate [Lopressor] 25 mg PO DAILY 04/23/17 04/23/17 Previous Rx's Medication Instructions Recorded Atorvastatin [Lipitor] 40 mg PO DAILY #30 tab 12/09/16 Nitroglycerin Sl Tabs [Nitrostat] 0.4 mg SUBLINGUAL Q5M PRN #50 tab 12/09/16 Phenazopyridine [Pyridium] 200 mg PO TID #6 tablet 04/23/17 Allergies Allergy/AdvReac Type Severity Reaction Status Date / Time codeine Allergy Unknown Verified 04/23/17 16:50 oxycodone Allergy Unknown Verified 04/23/17 16:50 Penicillins Allergy Swelling Verified 04/23/17 16:50 hydrocodone AdvReac Severe Constipatio Verified 04/23/17 16:50 n Review of Systems ROS Statement: Those systems with pertinent positive or pertinent negative responses have been documented in the HPI. ROS Other: All systems not noted in ROS Statement are negative. Past Medical History Past Medical History: Fibromyalgia, Hyperlipidemia, Hypertension, Thyroid Disorder Additional Past Medical History / Comment(s): "FATTY LIVER" " I HAD A HEART MURMUR WHEN I WAS WITH MY SON IN 1980" "IN 1976 HOSPITALIZED A WEEK FOR KIDNEY INFECETION", IBS, PT ON DEPAKOTE FOR BIPOLAR NOT SEIZURES.DDD/SPINE, "HERNIATED DISCS", PAST MIGRAINES,NEUROPATHY, History of Any Multi-Drug Resistant Organisms: None Reported Past Surgical History: Hysterectomy, Tonsillectomy Additional Past Surgical History / Comment(s): "TOTAL HYSTERECTOMY", COLONOSCOPY /POLYPECTOMY(BENIGN) Past Anesthesia/Blood Transfusion Reactions: Motion Sickness Additional Past Anesthesia/Blood Transfusion Reaction / Comment(s): IN THE AFTER SX HAD DIFFICULTY WAKING. CLAUSTERPHOBIA. Past Psychological History: Anxiety, Bipolar, Depression Smoking Status: Current every day smoker Past Alcohol Use History: None Reported Past Drug Use History: None Reported - Past Family History Father Family Medical History: Hypertension, Osteoarthritis (OA) Mother Family Medical History: Cancer, Coronary Artery Disease (CAD), Myocardial Infarction (MS) General Exam Limitations: no limitations General appearance: alert, in no apparent distress Respiratory exam: Present: normal lung sounds bilaterally. Absent: respiratory distress, wheezes, rales, rhonchi, stridor Cardiovascular Exam: Present: regular rate, normal rhythm, normal heart sounds. Absent: systolic murmur, diastolic murmur, rubs, gallop, clicks GI/Abdominal exam: Present: soft, tenderness (Mild lower abdominal tenderness), normal bowel sounds. Absent: distended, guarding, rebound, rigid Back exam: Absent: CVA tenderness (R), CVA tenderness (L) Neurological exam: Present: alert, oriented X3, CN II-XII intact Skin exam: Present: warm, dry, intact, normal color. Absent: rash Course Vital Signs 04/23/17 04/23/17 14:54 18:14 Temperature 98.1 F Pulse Rate 76 74 Respiratory 20 18 Rate Blood Pressure 177/86 115/67 O2 Sat by Pulse 98 95 Oximetry Medical Decision Making - Medical Decision Making 61-year-old female presented emergency from for abdominal pain, blood in the urine. There is no evidence of hematuria at this time. Patient is sure that she denies having rectal bleeding. Patient states that she does feel improved at this time. I did update on lab results which show mild elevation in liver functions are she has no pain or upper quadrant at this time. Patient CT does show moderate amount of stool and gas maybe lesions some of her discomfort. We did discuss taking suppository and enema to see if this helps she was given Pyridium for some dysuria is type symptoms and will follow-up with PCP we discussed possibly cystoscopy if symptoms persist. - Lab Data Result diagrams: 04/23/17 16:44 04/23/17 16:44 Lab Results 04/23/17 04/23/17 04/23/17 Range/Units 16:44 16:44 16:44 WBC 10.3 (3.8-10.6) k/uL RBC 4.52 (3.80-5.40) m/uL Hgb 13.2 (11.4-16.0) gm/dL Hct 40.7 (34.0-46.0) % MCV 90.2 (80.0-100.0) fL MCH 29.3 (25.0-35.0) pg MCHC 32.5 (31.0-37.0) g/dL RDW 15.2 (11.5-15.5) % Plt Count 183 (150-450) k/uL Neutrophils % 44 % Lymphocytes % 43 % Monocytes % 8 % Eosinophils % 2 % Basophils % 1 % Neutrophils # 4.5 (1.3-7.7) k/uL Lymphocytes # 4.5 (1.0-4.8) k/uL Monocytes # 0.8 (0-1.0) k/uL Eosinophils # 0.3 (0-0.7) k/uL Basophils # 0.1 (0-0.2) k/uL Sodium 141 (137-145) mmol/L Potassium 4.6 (3.5-5.1) mmol/L Chloride 110 H (98-107) mmol/L Carbon Dioxide 23 (22-30) mmol/L Anion Gap 8 mmol/L BUN 14 (7-17) mg/dL Creatinine 0.67 (0.52-1.04) mg/dL Est GFR (MDRD) Af Amer >60 (>60 ml/min/1.73 sqM) Est GFR (MDRD) Non-Af >60 (>60 ml/min/1.73 sqM) Glucose 85 (74-99) mg/dL Calcium 9.5 (8.4-10.2) mg/dL Total Bilirubin 0.2 (0.2-1.3) mg/dL AST 60 H (14-36) U/L ALT 99 H (9-52) U/L Alkaline Phosphatase 59 (38-126) U/L Total Protein 6.8 (6.3-8.2) g/dL Albumin 4.1 (3.5-5.0) g/dL Amylase 109 (30-110) U/L Lipase 389 H (23-300) U/L Urine Color Yellow Urine Appearance Clear (Clear) Urine pH 7.5 (5.0-8.0) Ur Specific [place] 1.018 (1.001-1.035) Urine Protein Negative (Negative) Urine Glucose (UA) Negative (Negative) Urine Ketones Trace H (Negative) Urine Blood Negative (Negative) Urine Nitrite Negative (Negative) Urine Bilirubin Negative (Negative) Urine Urobilinogen 2.0 (<2.0) mg/dL Ur Leukocyte Esterase Negative (Negative) Disposition Clinical Impression: Abdominal pain Disposition: HOME SELF-CARE Condition: Stable Instructions: Abdominal Pain (ED) Additional Instructions: Please return to the Emergency Department if symptoms worsen or any other concerns. Prescriptions: Phenazopyridine [Pyridium] 200 mg PO TID #6 tablet Referrals: Hesham Rosa MD [Primary Care Provider] - 1-2 days Time of Disposition: 18:52
[2017-04-23 18:18] VITALS: RESP 18
--- NOTE | 2017-04-23 18:31 | CT ---
EXAMINATION TYPE: CT abdomen pelvis wo con DATE OF EXAM: 04/23/2017 COMPARISON: NONE HISTORY: Abdominal pain CT DLP: mGycm Automated exposure control for dose reduction was used. TECHNIQUE: Helical acquisition of images was performed from the lung bases through the pelvis. FINDINGS: There is some mild atelectasis at the posterior lung bases. Liver spleen appear normal. Bile ducts ar e not dilated. Gallbladder appears normal. There is no evidence of a pancreatic mass. There is no adr enal mass. Kidneys have normal size and contour. There is no hydronephrosis. There is no retroperiton eal adenopathy. There is no ascites. Bladder distends smoothly. There is no sign of a pelvic mass. I see no intestinal wall thickening. Appendix appears normal. Abdominal aorta is atheromatous. There is spondylosis in the lumbar spine at L4-5. IMPRESSION: L4-5 SPONDYLOSIS. MILD ATHEROSCLEROTIC VASCULAR DISEASE. NO SIGN OF ACUTE ABDOMEN AND PELVIS.
[2017-04-23 19:07] VITALS: BP 108/66; PULSE 76; TEMP 98
== END 2017-04-23 19:07 | disposition home or self-care (01) ==
LOC: EC 14:46
DX: R10.30 Lower abdominal pain, unspecified (principal); R31.9 Hematuria, unspecified; M54.5 Low back pain; M79.7 Fibromyalgia; I10 Essential (primary) hypertension; E07.9 Disorder of thyroid, unspecified; F41.9 Anxiety disorder, unspecified; F31.9 Bipolar disorder, unspecified; F17.200 Nicotine dependence, unspecified, uncomplicated; Z90.710 Acquired absence of both cervix and uterus; Z79.899 Other long term (current) drug therapy; Z88.5 Allergy status to narcotic agent; Z88.0 Allergy status to penicillin
CPT/HCPCS: 99284; 96374; 96375; 96361 ×2; 36415; 80053; 82150; 83690; 85025; 81003; 74176; J2405; J1885

== ENCOUNTER → 2017-07-09 | Outpatient (CLI) | payer MEDICARE, OTHER ==
[~2017-07-09] MED LIST: REGADENOSON 0.4 MG/5 ML SYRINGE IV ONE
--- NOTE | 2017-07-09 11:30 | EST ---
EXERCISE STRESS AGE: 61 SEX: F HT: 61" WT: 150 PROTOCOL: Lexiscan Cardiolite Stress Test HEART RATE REST: 62 BLOOD PRESSURE REST: 129/86 MAXIMUM HEART RATE ACHIEVED: 98 MAXIMUM BLOOD PRESSURE: 152/91 85% MPHR: 136 100% MPHR: 160 INDICATIONS: Chest pain, hypertension. CLINICAL INFORMATION: Baseline rhythm is a sinus mechanism, rate of 62, normal axis, intervals, minor nonspecific ST-T wave changes. Baseline blood pressure 129/86 mmHg. Patient received injection of Lexiscan. Electrocardiographic monitoring revealed no evidence of diagnostic ischemic ST deviation. Cardiolite was injected per protocol. CONCLUSION: 1. Nondiagnostic electrocardiograph stress testing. 2. Nuclear images will be reported separately. MMODL / IJN: [id number] /
--- NOTE | 2017-07-09 15:54 | NM ---
EXAMINATION TYPE: NM stress lexiscan cardiolite DATE OF EXAM: 07/09/2017 COMPARISON: NONE HISTORY: 61-year-old female with hypertension TECHNIQUE: After the intravenous administration of 12 mCi Tc 99m Sestamibi - Cardiolite resting SPEC T images acquired 45 minutes post injection. The patient received 0.4mg Lexiscan, 29.8 mCi Tc 99m Sestamibi - Stress images obtained [address] injection FINDINGS: Review of stress and rest SPECT images demonstrates no distinct perfusion abnormality. Gated analysi s shows normal wall motion with an estimated left ventricular ejection fraction of 65 %. TID is calc ulated at 1.16, upper limits of normal. IMPRESSION: No scintigraphic evidence for reversible ischemia.
== END | disposition home or self-care (01) ==
LOC: RADNMMAIN 09:16
PROVIDERS: ATTEND Family Medicine
DX: I10 Essential (primary) hypertension (principal)
CPT/HCPCS: 93017; 78452; A9500; J2785

== ENCOUNTER 2017-08-06 12:24 | Emergency (ER) | payer MEDICARE, OTHER ==
[2017-08-06 12:45] VITALS: BP 167/96; PULSE 74; RESP 18; TEMP 99
--- NOTE | 2017-08-06 13:47 | ED ---
ENT HPI - General Chief complaint: Dental/Oral Stated complaint: Oral Abscess Time Seen by Provider: 08/06/17 12:47 Source: patient, RN notes reviewed Mode of arrival: ambulatory Limitations: no limitations - History of Present Illness Initial comments: This is a 61-year-old female who presents to the emergency department with chief complaint of possible dental abscess. Patient states that she has been experiencing upper and lower dental pain. She states that yesterday her right upper cheek became swollen. She states over night the lower half of her right cheek became swollen. Patient states that she does have a fractured tooth on the upper right that she will be following up with a dentist for. Patient states that she is ALLERGIC to penicillin and that she does not like taking clindamycin. Denies any fevers or chills. Denies chest pain, shortness of breath, abdominal pain, nausea or vomiting, constipation or diarrhea, dysuria or hematuria, numbness or tingling, headache or vision changes. - Related Data Home Medications Medication Instructions Recorded Confirmed Cyclobenzaprine [Flexeril] 10 mg PO TID PRN 04/25/16 04/23/17 Divalproex [Depakote] 500 mg PO BID 04/25/16 04/23/17 Gabapentin [Neurontin] 300 mg PO DAILY 04/25/16 04/23/17 Ibuprofen [Motrin] 800 mg PO TID PRN 04/25/16 04/23/17 Lisinopril 40 mg PO DAILY 04/25/16 04/23/17 Sertraline [Zoloft] 100 mg PO DAILY 04/25/16 04/23/17 Gabapentin [Neurontin] 600 mg PO HS 12/07/16 04/23/17 Levothyroxine Sodium [Synthroid] 50 mcg PO DAILY 12/07/16 04/23/17 ALPRAZolam [Xanax] 0.25 mg PO HS 04/23/17 04/23/17 Echinacea 980mg 980 mg PO BID 04/23/17 04/23/17 Metoprolol Tartrate [Lopressor] 25 mg PO DAILY 04/23/17 04/23/17 Previous Rx's Medication Instructions Recorded Atorvastatin [Lipitor] 40 mg PO DAILY #30 tab 12/09/16 Nitroglycerin Sl Tabs [Nitrostat] 0.4 mg SUBLINGUAL Q5M PRN #50 tab 12/09/16 Phenazopyridine [Pyridium] 200 mg PO TID #6 tablet 04/23/17 Erythromycin Base [Erythromycin] 500 mg PO BID #20 tablet 08/06/17 traMADol HCL [Ultram] 50 mg PO Q4-6H PRN #15 tab 08/06/17 Allergies Allergy/AdvReac Type Severity Reaction Status Date / Time codeine Allergy Unknown Verified 08/06/17 12:45 oxycodone Allergy Unknown Verified 08/06/17 12:45 Penicillins Allergy Swelling Verified 08/06/17 12:45 hydrocodone AdvReac Severe Constipatio Verified 08/06/17 12:45 n Review of Systems ROS Statement: Those systems with pertinent positive or pertinent negative responses have been documented in the HPI. ROS Other: All systems not noted in ROS Statement are negative. Past Medical History Past Medical History: Fibromyalgia, Hyperlipidemia, Hypertension, Thyroid Disorder Additional Past Medical History / Comment(s): "FATTY LIVER IBS, DEPAKOTE FOR BIPOLAR NOT SEIZURES.DDD/SPINE,"HERNIATED DISCS", PAST MIGRAINES,NEUROPATHY, History of Any Multi-Drug Resistant Organisms: None Reported Past Surgical History: Hysterectomy, Tonsillectomy Additional Past Surgical History / Comment(s): COLONOSCOPY/POLYPECTOMY(BENIGN) Past Anesthesia/Blood Transfusion Reactions: Motion Sickness Additional Past Anesthesia/Blood Transfusion Reaction / Comment(s): IN THE AFTER SX HAD DIFFICULTY WAKING. CLAUSTERPHOBIA. Past Psychological History: Anxiety, Bipolar, Depression Smoking Status: Current every day smoker Past Alcohol Use History: None Reported Past Drug Use History: Marijuana - Past Family History Father Family Medical History: Hypertension, Osteoarthritis (OA) Mother Family Medical History: Cancer, Coronary Artery Disease (CAD), Myocardial Infarction (ID) General Exam - General Exam Comments Initial Comments: General: Awake and alert, well-developed; in no apparent distress. HEENT: Head atraumatic, normocephalic. Patient's right cheek is swollen and firm. No erythema noted. Pupils are equal, round and reactive to light. Extraocular movements intact. Oropharynx moist without erythema or exudate. Tooth #4 is fractured. Gumline surrounding this area is exquisitely tender. No masses or areas of fluctuance noted. Right jawline is tender on palpation. Neck: Supple. Normal ROM. Cardiovascular: Regular rate and rhythm. No murmurs, rubs or gallops. Chest symmetrical. Respiratory: Lungs clear to auscultation bilaterally. No wheezes, rales or rhonchi. Normal respiratory effort with no use of accessory muscles. Musculoskeletal: Normal ROM, no tenderness bilateral upper and lower extremities. Ambulating normally. Skin: Kendall, warm and dry without rashes or lesions. Neurological: Alert and oriented x3. CN II-XII grossly intact. Speech is fluent and answers are appropriate. No focal neuro deficits. Psychiatric: Normal mood and affect. No overt signs of depression or anxiety noted. Limitations: no limitations Course Vital Signs 08/06/17 12:42 Temperature 99.0 F Pulse Rate 74 Respiratory 18 Rate Blood Pressure 167/96 O2 Sat by Pulse 98 Oximetry Medical Decision Making - Medical Decision Making This is a 61-year-old female who presents to the emergency department with chief complaint of possible dental abscess. Patient's right cheek is swollen and firm. Jawline is tender as well as upper right gum line. No masses or areas of fluctuance are noted. Patient denies any fevers or chills. She'll be started on erythromycin as well as given pain medication. She is to follow-up with a dentist as soon as possible. Patient is in no acute distress and vital signs are stable. She will be discharged home. She is in agreement with plan and voices understanding. All questions were answered. Disposition Clinical Impression: Fracture of tooth, Dental caries Disposition: HOME SELF-CARE Condition: Good Instructions: Dental Caries (ED), Toothache (ED) Additional Instructions: Please follow-up with a dentist as soon as possible. Please take medications as prescribed. Please return to the emergency department if you develop any fevers or chills or worsening in symptoms. Please follow up with primary care provider within 1-2 days. Return to emergency department if symptoms should worsen or any concerns arise. Prescriptions: Erythromycin Base [Erythromycin] 500 mg PO BID #20 tablet traMADol HCL [Ultram] 50 mg PO Q4-6H PRN #15 tab PRN Reason: Pain Referrals: Hesham Rosa MD [Primary Care Provider] - 1-2 days Time of Disposition: 13:55
== END 2017-08-06 14:11 | disposition home or self-care (01) ==
LOC: EC 12:24
DX: S02.5XXA Fracture of tooth (traumatic), initial encounter for closed fracture (principal); K02.9 Dental caries, unspecified; M79.7 Fibromyalgia; E78.5 Hyperlipidemia, unspecified; I10 Essential (primary) hypertension; E07.9 Disorder of thyroid, unspecified; F31.9 Bipolar disorder, unspecified; F17.200 Nicotine dependence, unspecified, uncomplicated; F41.9 Anxiety disorder, unspecified; Z79.899 Other long term (current) drug therapy; Z88.5 Allergy status to narcotic agent; Z88.0 Allergy status to penicillin
CPT/HCPCS: 99282

== ENCOUNTER → 2017-08-31 | Outpatient (CLI) | payer MEDICARE, OTHER ==
--- NOTE | 2017-08-31 09:54 | CT ---
EXAMINATION TYPE: CT abdomen pelvis wo con DATE OF EXAM: 08/31/2017 COMPARISON: 04/23/2017 HISTORY: 61-year-old female RLQ pain CT DLP: 373.60 mGycm. Automated exposure control for dose reduction was used. TECHNIQUE: Contiguous axial scanning of the abdomen and pelvis without IV contrast. Coronal and sagit margarita reconstructions performed. FINDINGS: Heart is normal size without pericardial effusion. Strandy inferior lingular atelectasis. No pleural effusion. Noncontrast appearance of the liver, gallbladder, adrenal glands, kidneys, spleen, and pancreas show no gross abnormality. Mild atherosclerotic calcifications within the abdominal aorta and iliac arteries. No mesenteric or retroperitoneal lymphadenopathy. No dilated small bowel, free fluid, or free air. Normal appendix is visualized. Mild colonic stool burden without pericolonic inflammatory change. Bladder nondistended. Multiple pelvic phleboliths. Uterus surgically absent. The ovaries are not visu alized. No abnormal fluid collection in the pelvis or pelvic lymphadenopathy. Bones: Mild degenerative changes at the hips. Degenerative disc disease at L4-L5 and facet arthropath y mid to lower lumbar spine. No osseous destructive process. IMPRESSION: 1. Status post hysterectomy. The ovaries are not seen. 2. Normal appendix. 3. No acute inflammatory process identified to explain the patient's symptoms. 4. Mid to lower lumbar spondylosis with degenerative disc disease greatest at L4-L5.
== END | disposition home or self-care (01) ==
LOC: RADCTMAIN 08:04
PROVIDERS: ATTEND Family Medicine
DX: R10.31 Right lower quadrant pain (principal); Z90.710 Acquired absence of both cervix and uterus
CPT/HCPCS: 74176

== ENCOUNTER 2017-10-04 06:47 | Day surgery (SDC) | payer MEDICARE, OTHER ==
[2017-10-03 10:47] VITALS: BMI 27.3
[~2017-10-04 06:47] MED LIST changes: +DEXAMETHASONE SOD PHOSPHATE 10 MG/ML 1 ML VIAL IV ONE; +HEPARIN SODIUM,PORCINE 5,000 UNIT/ML 1 ML VIAL SQ ONE; +LACTATED RINGERS 1,000 ML IV SCH; +MORPHINE SULFATE 4 MG/ML SYRINGE IV PRN; +ONDANSETRON ODT 4 MG TAB PO ONE; +Pre Op ABX Message 1 EACH MISC MISCELLANE ONE; -REGADENOSON 0.4 MG/5 ML SYRINGE IV ONE
[2017-10-04] MEDS ORDERED: ONDANSETRON 4 MG/2 ML VIAL IVP ONE ×2 (07:20→09:10)
[2017-10-04] MEDS ORDERED: LIDOCAINE 1% 20 ML VIAL (10MG/ML) FOR IV START INTRADERMA ONE (07:21)
--- NOTE | 2017-10-04 07:48 | P.GSHP ---
History of Present Illness H&P Date: 10/04/17 Chief Complaint: Right lower quadrant pain This is a 7-year-old female referred from Dr. Hesham Reese. Patient has had complaints of chronic right lower quadrant pain. She has a history of endometriosis. She's had previous adhesions. She presents today for laparoscopic lysis of adhesions and diagnostic laparoscopy. Patient aware the risk surgery including bowel injury and conversion to open procedure. Past Medical History Past Medical History: Fibromyalgia, Hyperlipidemia, Hypertension, Thyroid Disorder Additional Past Medical History / Comment(s): "FATTY LIVER", IBS, DDD/SPINE, "HERNIATED DISCS", PAST MIGRAINES,NEUROPATHY History of Any Multi-Drug Resistant Organisms: None Reported Past Surgical History: Heart Catheterization, Hysterectomy, Tonsillectomy Additional Past Surgical History / Comment(s): COLONOSCOPY Past Anesthesia/Blood Transfusion Reactions: Motion Sickness Additional Past Anesthesia/Blood Transfusion Reaction / Comment(s): IN THE AFTER SX HAD DIFFICULTY WAKING. CLAUSTROPHOBIA. Smoking Status: Former smoker - Past Family History Father Family Medical History: Hypertension, Osteoarthritis (OA) Mother Family Medical History: Cancer, Coronary Artery Disease (CAD), Myocardial Infarction ([place]) Medications and Allergies Home Medications Medication Instructions Recorded Confirmed Type Cyclobenzaprine [Flexeril] 10 mg PO TID PRN 04/25/16 10/04/17 History Divalproex [Depakote] 500 mg PO BID 04/25/16 10/04/17 History Gabapentin [Neurontin] 300 mg PO DAILY 04/25/16 10/04/17 History Ibuprofen [Motrin] 800 mg PO TID PRN 04/25/16 10/04/17 History Lisinopril 40 mg PO DAILY 04/25/16 10/04/17 History Sertraline [Zoloft] 100 mg PO DAILY 04/25/16 10/04/17 History Gabapentin [Neurontin] 600 mg PO HS 12/07/16 10/04/17 History Levothyroxine Sodium [Synthroid] 50 mcg PO DAILY 12/07/16 10/04/17 History Nitroglycerin Sl Tabs [Nitrostat] 0.4 mg SUBLINGUAL Q5M PRN #50 tab 12/09/1603/14 Rx Echinacea 980mg 980 mg PO BID 04/23/17 10/04/17 History Metoprolol Tartrate [Lopressor] 25 mg PO BID 04/23/17 10/04/17 History Aspirin 81 mg PO DAILY 10/03/17 10/04/17 History Atorvastatin [Lipitor] 40 mg PO HS 10/03/17 10/04/17 History Cholecalciferol [Vitamin D3] 1,000 unit PO DAILY 10/03/17 10/04/17 History clonazePAM [KlonoPIN] 0.25 mg PO BID PRN 10/03/17 10/04/17 History Allergies Allergy/AdvReac Type Severity Reaction Status Date / Time codeine Allergy Unknown Verified 10/03/17 10:16 oxycodone Allergy Swelling Verified 10/03/17 10:16 Penicillins Allergy Swelling Verified 10/03/17 10:16 Surgical - Exam Vital Signs Temp Pulse Resp BP Pulse Ox 96.9 F L 64 16 139/91 93 L 10/04/17 07:08 10/04/17 07:08 10/04/17 07:08 10/04/17 07:08 10/04/17 07:08 - General well developed, no distress - Eyes PERRL - ENT normal pinna - Neck no masses - Respiratory normal expansion - Cardiovascular Rhythm: regular - Abdomen There is some mild right lower quadrant tenderness. There is no rebound or guarding. Abdomen: soft Assessment and Plan Assessment: Chronic right lower quadrant pain. We'll perform diagnostic laparoscopy and possible lysis of adhesions.
[2017-10-04] MEDS ORDERED: ROCURONIUM BROMIDE 10 MG/ML 10 ML VIAL IV ONE (07:55)
[2017-10-04] MEDS ORDERED: MIDAZOLAM 2 MG/2 ML VIAL ONE (07:55)
[2017-10-04] MEDS ORDERED: NEOSTIGMINE 1 MG/ML 10 ML VIAL ONE (07:55)
[2017-10-04] MEDS ORDERED: GLYCOPYRROLATE 0.2 MG/ML 2 ML VIAL ONE (07:55)
[2017-10-04] MEDS ORDERED: SUCCINYLCHOLINE CHLORIDE 100 MG/5 ML SYR IV ONE (07:55)
[2017-10-04] MEDS ORDERED: PROPOFOL 10 MG/ML 20 ML VIAL IV ONE (07:55)
[2017-10-04] MEDS ORDERED: fentaNYL (PF) 50 MCG/ML 2 ML AMP ONE (07:55)
[2017-10-04] MEDS ORDERED: LIDOCAINE 1% INJ 10MG/ML (20 ML MDV) ONE (07:55)
[2017-10-04] MEDS ORDERED: SODIUM CHLORIDE 0.9% 50 ML with ceFAZolin 2,000 MG IV ONE ×2 (08:09)
[2017-10-04] MEDS ORDERED: BUPIVACAINE (PF) 0.25% 30 ML VIAL SQ ONE (08:12)
[2017-10-04 09:00] VITALS: TEMP 97.9
[2017-10-04 09:47] VITALS: RESP 16
--- NOTE | 2017-10-04 10:05 | P.OP ---
Date of Procedure: 10/04/17 Preoperative Diagnosis: Chronic right lower quadrant pain Postoperative Diagnosis: Right lower quadrant adhesions Procedure(s) Performed: Lysis of adhesions Incisional appendectomy Anesthesia: MANUEL Surgeon: Al Horner Pathology: other (Appendix) Condition: stable Disposition: PACU Description of Procedure: The patient's placed the operative table in the supine position. She received general anesthesia. Her abdomen was prepped and draped usual fashion. The skin incision sites were anesthetized 1% local Xylocaine. Using 11 blade the skin was incised umbilicus. Using a Saad clamp the umbilicus is grasped and then a Veress needles placed into a cavity. Position of the Veress needle was confirmed with positive drop test. After adequate insufflation a 5 mm trochars placed into the. Cavity. And the laparoscope was placed into the pleural cavity. There were adhesions noted the right lower quadrant. Next a 5 mm trochars placed in the supraumbilical position and a 10 mm trocar was placed in the midline epigastric position. Using the Harmonic scissors the adhesions were lysed. The adhesions were also photographed. The appendix was visualized and there appeared to be some adhesions to the appendix. The meters appendix was divided. And then using an Endoloop the appendix base was ligated and then using Harmonic scissors the appendix was transected. The parents was then brought through the 10 mm trocar site. The abdomen was irrigated there is no being seen. The trochars withdrawn. The skin was closed interrupted 3-0 Monocryl suture. Dermabond was applied.
[2017-10-04] MEDS ORDERED: HYDROcodone/APAP 7.5-325MG 1 EACH TAB PO ONE (10:24)
[2017-10-04 10:48] VITALS: PULSE 56
[2017-10-04 11:01] VITALS: BP 128/60
== END 2017-10-04 11:46 | disposition home or self-care (01) ==
LOC: OR 06:47
PROVIDERS: ATTEND Surgery
DX: K66.0 Peritoneal adhesions (postprocedural) (postinfection) (principal); G89.29 Other chronic pain; M79.7 Fibromyalgia; E78.5 Hyperlipidemia, unspecified; I10 Essential (primary) hypertension; E07.9 Disorder of thyroid, unspecified; K76.0 Fatty (change of) liver, not elsewhere classified; K58.9 Irritable bowel syndrome, unspecified; G62.9 Polyneuropathy, unspecified; I25.10 Atherosclerotic heart disease of native coronary artery without angina pectoris; F31.9 Bipolar disorder, unspecified; Z79.82 Long term (current) use of aspirin; Z79.890 Hormone replacement therapy; Z79.899 Other long term (current) drug therapy; Z88.5 Allergy status to narcotic agent; Z88.0 Allergy status to penicillin; F17.200 Nicotine dependence, unspecified, uncomplicated
CPT/HCPCS: 88304; 49329; 44970; J2250; J2270; J1644; J1100; J2710; J2405; J2001; J3010; J0690; J0330; J2704; 88302

== ENCOUNTER 2018-03-04 12:40 | Emergency (ER) | payer MEDICARE, OTHER ==
[2018-03-04] MEDS ORDERED: KETOROLAC 30 MG/ML 1 ML VIAL IVP STA (12:56)
[2018-03-04] MEDS ORDERED: SODIUM CHLORIDE 0.9% 1,000 ML IV STA ×2 (12:56→14:15)
--- NOTE | 2018-03-04 13:00 | ED ---
Chest Pain HPI - General Chief Complaint: Chest Pain Stated Complaint: chest pain Time Seen by Provider: 03/04/18 12:40 Source: patient, EMS, RN notes reviewed Mode of arrival: EMS Limitations: no limitations - History of Present Illness Initial Comments: This is a 62-year-old female history of hypertension who complains of the onset of left-sided chest pain for last 3 days today she also has some pain and numbness her left arm. She took nitro 1 at home and did help somewhat but she also had a headache from chills and some left hand numbness she's had for 2 days. No fevers chills nausea vomiting sweats she says the pain is 10/10 sharp in nature nonradiating. MD Complaint: chest pain - Related Data Home Medications Medication Instructions Recorded Confirmed Cyclobenzaprine [Flexeril] 10 mg PO TID PRN 04/25/16 03/04/18 Divalproex [Depakote] 500 mg PO BID 04/25/16 03/04/18 Gabapentin [Neurontin] 300 mg PO DAILY 04/25/16 03/04/18 Ibuprofen [Motrin] 800 mg PO TID PRN 04/25/16 03/04/18 Lisinopril 40 mg PO DAILY 04/25/16 03/04/18 Sertraline [Zoloft] 100 mg PO DAILY 04/25/16 03/04/18 Gabapentin [Neurontin] 600 mg PO HS 12/07/16 03/04/18 Levothyroxine Sodium [Synthroid] 50 mcg PO DAILY 12/07/16 03/04/18 Metoprolol Tartrate [Lopressor] 25 mg PO BID 04/23/17 03/04/18 Atorvastatin [Lipitor] 40 mg PO HS 10/03/17 03/04/18 clonazePAM [KlonoPIN] 0.25 mg PO BID PRN 10/03/17 03/04/18 Multivitamins, Thera [Multivitamin 1 tab PO DAILY 03/04/18 03/04/18 (formulary)] Previous Rx's Medication Instructions Recorded Nitroglycerin Sl Tabs [Nitrostat] 0.4 mg SUBLINGUAL Q5M PRN #50 tab 12/09/16 Ibuprofen 800 mg PO Q6HR PRN #20 tablet 03/04/18 Allergies Allergy/AdvReac Type Severity Reaction Status Date / Time codeine Allergy Unknown Verified 03/04/18 13:29 oxycodone Allergy Swelling Verified 03/04/18 13:29 Penicillins Allergy Swelling Verified 03/04/18 13:29 Review of Systems ROS Statement: Those systems with pertinent positive or pertinent negative responses have been documented in the HPI. ROS Other: All systems not noted in ROS Statement are negative. EKG Findings - EKG Results: EKG: interpreted by ERMClarita, WNL, sinus rhythm, normal axis, normal QRS, normal ST/ T, no acute changes (EKG is normal sinus rhythm rate was 70 UT interval 142 QRS duration 90 QT since QTC 4/[address]-T wave changes) Past Medical History Past Medical History: Fibromyalgia, Hyperlipidemia, Hypertension, Thyroid Disorder Additional Past Medical History / Comment(s): "FATTY LIVER", IBS, DDD/SPINE, "HERNIATED DISCS", PAST MIGRAINES,NEUROPATHY History of Any Multi-Drug Resistant Organisms: None Reported Past Surgical History: Heart Catheterization, Hysterectomy, Tonsillectomy Additional Past Surgical History / Comment(s): COLONOSCOPY Past Anesthesia/Blood Transfusion Reactions: Motion Sickness Additional Past Anesthesia/Blood Transfusion Reaction / Comment(s): IN THE AFTER SX HAD DIFFICULTY WAKING. CLAUSTROPHOBIA. Past Psychological History: Anxiety, Bipolar, Depression Smoking Status: Current some day smoker Past Alcohol Use History: Occasional Past Drug Use History: Marijuana - Past Family History Father Family Medical History: Hypertension, Osteoarthritis (OA) Mother Family Medical History: Cancer, Coronary Artery Disease (CAD), Myocardial Infarction ([place]) General Exam - General Exam Comments Initial Comments: This is a well-developed well-nourished awake alert oriented x 3 female Limitations: no limitations General appearance: alert, anxious Head exam: Present: atraumatic, normocephalic, normal inspection Eye exam: Present: normal appearance, PERRL, EOMI. Absent: scleral icterus, conjunctival injection, periorbital swelling ENT exam: Present: normal exam, mucous membranes moist Neck exam: Present: normal inspection. Absent: tenderness, meningismus, lymphadenopathy Respiratory exam: Present: normal lung sounds bilaterally, chest wall tenderness (Reproducible tenderness palpation along the left costochondral costal sternal margin.). Absent: respiratory distress, wheezes, rales, rhonchi , stridor Cardiovascular Exam: Present: regular rate, normal rhythm, normal heart sounds. Absent: systolic murmur, diastolic murmur, rubs, gallop, clicks GI/Abdominal exam: Present: soft, normal bowel sounds. Absent: distended, tenderness, guarding, rebound, rigid Extremities exam: Present: normal inspection, full ROM, normal capillary refill. Absent: tenderness, pedal edema, joint swelling, calf tenderness Back exam: Present: normal inspection Neurological exam: Present: alert, oriented X3, CN II-XII intact Psychiatric exam: Present: normal affect, normal mood Skin exam: Present: warm, dry, intact, normal color. Absent: rash Course Vital Signs 03/04/18 14:32 Pulse Rate 66 Respiratory 18 Rate Blood Pressure 127/89 O2 Sat by Pulse 96 Oximetry Chest Pain MDM - MDM I did review the imaging and report no acute findings. I did a long session with patient regarding the findings the presentation consistent with costochondritis and chest wall syndrome. She'll be discharged on appropriate anti-inflammatory medication Disposition Clinical Impression: Costalchondritis, Chest wall syndrome Disposition: HOME SELF-CARE Condition: Good Instructions: Costochondritis (ED) Prescriptions: Ibuprofen 800 mg PO Q6HR PRN #20 tablet PRN Reason: Pain Is patient prescribed a controlled substance at d/c from ED?: No Referrals: Hesham Rosa MD [Primary Care Provider] - 1-2 days
[2018-03-04 13:23] LABS: Basophils % (A) 0 %; Eosinophils # (A) 0.1 k/uL (0-0.7); Eosinophils % (A) 2 %; HCT 40.7 % (34.0-46.0); HGB 14.1 gm/dL (11.4-16.0); Lymphocytes # (A) 1.8 k/uL (1.0-4.8); Lymphocytes % (A) 35 %; MCH 29.7 pg (25.0-35.0); MCHC 34.5 g/dL (31.0-37.0); MCV 85.9 fL (80.0-100.0); Mean Platelet Volume 7.9; Monocytes # (A) 0.3 k/uL (0-1.0); Monocytes % (A) 7 %; Neutrophils # (A) 2.7 k/uL (1.3-7.7); Neutrophils % (A) 53 %; Platelet Count 139 k/uL (150-450); RBC 4.74 m/uL (3.80-5.40); RDW 14.3 % (11.5-15.5); WBC 5.1 k/uL (3.8-10.6)
[2018-03-04 13:33] LABS: Anion Gap 12 mmol/L; Blood Urea Nitrogen 18 mg/dL (7-17); Calcium 9.2 mg/dL (8.4-10.2); Carbon Dioxide 24 mmol/L (22-30); Chloride 106 mmol/L (98-107); Glucose 82 mg/dL (74-99); Magnesium 1.8 mg/dL (1.6-2.3); Sodium 142 mmol/L (137-145); Total Bilirubin 0.7 mg/dL (0.2-1.3); Total Protein 6.7 g/dL (6.3-8.2)
[2018-03-04 13:34] LABS: ALT 9 U/L (9-52); AST 35 U/L (14-36); Alkaline Phosphatase 52 U/L (38-126); Amylase 86 U/L (30-110); Lipase 331 U/L (23-300)
[2018-03-04 13:38] LABS: D-Dimer <0.17 mg/L FEU (<0.60); INR 1.2 (<1.2); Partial Thromboplastin Time 25.9 sec (22.0-30.0); Prothrombin Time 11.1 sec (9.0-12.0)
[2018-03-04 13:47] LABS: Creatine Kinase 81 U/L (30-135)
--- NOTE | 2018-03-04 13:54 | XR ---
EXAMINATION TYPE: XR chest 2V DATE OF EXAM: 03/04/2018 COMPARISON: 12/07/2016 HISTORY: Chest pain TECHNIQUE: Frontal and lateral views of the chest are obtained. FINDINGS: There is no focal air space opacity, pleural effusion, or pneumothorax seen. The cardiac silhouette size is within normal limits. There is tortuosity of the descending thoracic aorta as seen on the prior. The osseous structures are intact. IMPRESSION: No acute cardiopulmonary process.
[2018-03-04 14:00] LABS: Creatine Kinase MB 1.1 ng/mL (0.0-2.4); Troponin I <0.012 ng/mL (0.000-0.034)
[2018-03-04 14:32] VITALS: RESP 18
--- NOTE | 2018-03-04 15:03 | CT ---
EXAMINATION TYPE: CT brain wo con DATE OF EXAM: 03/04/2018 COMPARISON: None INDICATION: Patient complains of headache and dizziness. DLP: 817.8 mGycm, Automated exposure control for dose reduction was used. CONTRAST: None CT of the brain is performed utilizing 3 mm thick sections through the posterior fossa and 3 mm thick sections through the remaining calvarium. Study is performed within 24 hours of arrival to the hosp [facility]. No abnormal hyperdensity is present to suggest an acute intracranial hemorrhage. No mass lesion is evident. No acute infarcts are evident. Ventricles and sulci are appropriate for the patient age. Paranasal sinuses and mastoid air cells within the [id number] are clear. IMPRESSIONS: 1. No acute intracranial process.
[2018-03-04 15:56] VITALS: BP 132/78; PULSE 68; TEMP 98
== END 2018-03-04 15:55 | disposition home or self-care (01) ==
LOC: EC 12:40
DX: M94.0 Chondrocostal junction syndrome [Tietze] (principal); R20.0 Anesthesia of skin; R68.83 Chills (without fever); R51 Headache; E78.5 Hyperlipidemia, unspecified; I10 Essential (primary) hypertension; M79.7 Fibromyalgia; G62.9 Polyneuropathy, unspecified; E07.9 Disorder of thyroid, unspecified; F31.9 Bipolar disorder, unspecified; F41.9 Anxiety disorder, unspecified; F17.200 Nicotine dependence, unspecified, uncomplicated; Z88.0 Allergy status to penicillin; Z88.5 Allergy status to narcotic agent; Z79.899 Other long term (current) drug therapy; Z86.69 Personal history of other diseases of the nervous system and sense organs; Z82.49 Family history of ischemic heart disease and other diseases of the circulatory system; Z95.9 Presence of cardiac and vascular implant and graft, unspecified
CPT/HCPCS: 36415; 93005; 85379; 83880; 80053; 82150; 82550; 82553; 83690; 83735; 84484; 85025; 85610; 85730; 71046; 70450; 99285; 96374; 96361 ×2; J1885

== ENCOUNTER → 2018-05-17 | Outpatient (CLI) | payer MEDICARE, OTHER ==
--- NOTE | 2018-05-17 14:04 | ECHOF ---
Referral Reason:R01.1 Heart Murmur MEASUREMENTS -------- HEIGHT: 157.5 cm WEIGHT: 63.5 kg BP: IVSd: 1.2 cm (0.6 - 1.1) LVIDd: 3.3 cm (3.9 - 5.3) LVPWd: 1.2 cm (0.6 - 1.1) IVSs: 1.4 cm LVIDs: 2.6 cm LVPWs: 1.5 cm LA Diam: 3.1 cm (2.7 - 3.8) Ao Diam: 2.8 cm (2.0 - 3.7) AV Cusp: 1.5 cm (1.5 - 2.6) LA Diam: 3.2 cm (2.7 - 3.8) MV EXCURSION: 15.271 mm (> 18.000) MV EF SLOPE: 83 mm/s (70 - 150) EPSS: 0.6 cm MV E Everette: 0.67 m/s MV DecT: 197 ms MV A Everette: 0.73 m/s MV E/A Ratio: 0.93 RAP: 5.00 mmHg RVSP: 25.15 mmHg FINDINGS -------- Sinus rhythm. This was a technically good study. The left ventricular size is normal. There is mild concentric left ventricular hypertrophy. Overa ll left ventricular systolic function is normal with, an EF between 55 - 60 %. The right ventricle is normal in size. The left atrial size is normal. The right atrial size is normal. The aortic valve is trileaflet, and appears structurally normal. No aortic stenosis or regurgitation. The mitral valve leaflets are mildly thickened. Mild mitral annular calcification present. Mild m itral regurgitation is present. Mild tricuspid regurgitation present. There is no evidence of pulmonary hypertension. The right v entricular systolic pressure, as measured by Doppler, is 25.15mmHg. There is no pulmonic regurgitation present. The aortic root size is normal. There is no pericardial effusion. CONCLUSIONS -------- 1. There is mild concentric left ventricular hypertrophy. 2. Overall left ventricular systolic function is normal with, an EF between 55 - 60 %. 3. The right ventricle is normal in size. 4. The left atrial size is normal. 5. The right atrial size is normal. 6. The aortic valve is trileaflet, and appears structurally normal. No aortic stenosis or regurgitati on. 7. The mitral valve leaflets are mildly thickened. 8. Mild mitral annular calcification present. 9. Mild mitral regurgitation is present. 10. Mild tricuspid regurgitation present. 11. There is no evidence of pulmonary hypertension. 12. The right ventricular systolic pressure, as measured by Doppler, is 25.15mmHg. 13. There is no pulmonic regurgitation present. 14. The aortic root size is normal. 15. There is no pericardial effusion. DESIGN ENGINEER: Lala Omalley RDCS
== END | disposition home or self-care (01) ==
LOC: RADECHMAIN 11:17
PROVIDERS: ATTEND Family Medicine
DX: I08.1 Rheumatic disorders of both mitral and tricuspid valves (principal)
CPT/HCPCS: 93306

== ENCOUNTER → 2018-09-24 | Outpatient (CLI) | payer MEDICARE, OTHER ==
--- NOTE | 2018-09-25 12:28 | MM ---
Reason for exam: screening (asymptomatic). History: Patient is postmenopausal. Family history of breast cancer in mother, breast cancer in sister, and breast cancer in maternal grandmother. Physical Findings: A clinical breast exam by your physician is recommended on an annual basis and results should be correlated with mammographic findings. MG 3D Screening Mammo W/Cad Bilateral CC and MLO view(s) were taken. No prior studies available for comparison. The breast tissue is heterogeneously dense. This may lower the sensitivity of mammography. Stable benign calcifications. There is no discrete abnormality. No significant changes when compared with prior studies. ASSESSMENT: Benign, BI-RAD 2 RECOMMENDATION: Routine screening mammogram of both breasts in 1 year.
== END | disposition home or self-care (01) ==
LOC: RADMAMWWP 15:02
PROVIDERS: ATTEND Family Medicine
DX: Z12.31 Encounter for screening mammogram for malignant neoplasm of breast (principal); Z80.3 Family history of malignant neoplasm of breast
CPT/HCPCS: 77063; 77067

== ENCOUNTER → 2020-02-25 | Outpatient (CLI) | payer MEDICARE, OTHER ==
--- NOTE | 2020-02-25 16:04 | CTL ---
EXAMINATION TYPE: CT Low Dose Lung DATE OF EXAM ORDERED: 02/25/2020 HISTORY: Long-term tobacco use. Lung cancer screening CT DLP: 62.[address] CTDI: 1.8 mGy Automated exposure control for dose reduction was used. SCREENING VISIT: For study COMPARISON: Chest x-ray March 04, 2018 TECHNIQUE: Low dose computed tomography scan was performed through the chest at 1 mm thick sections a nd reconstructed images in the coronal plane at [address] DIAGNOSTIC QUALITY: Satisfactory FINDINGS: LUNG NODULES: Present, detailed below: There is 3 mm right lower lobe nodule axial image 152 LUNGS: COPD: Severity: Mild Fibrosis: Severity: None Lymph nodes: None Other findings: None BILATERAL PLEURAL SPACE: Effusion: None Calcification: None Thickening: None Pneumothorax: None HEART: Heart Size: Normal Coronary calcification: Moderate Pericardial effusion: None OTHER FINDINGS: Upper abdomen: None Bony thorax: Moderate spurring in the mid to lower thoracic junction Supraclavicular region: None. Other: Ectasia of the ascending aorta up to 3.8 cm in diameter image 117 series 3 IMPRESSION: Small 3 mm right lower lobe nodule. No suspicious greater than [address] CHEST RECOMMENDATION: Annual low-dose lung screening CT CT LUNG RAD: Lung-Rad 2 Benign Appearance or Behavior
== END | disposition home or self-care (01) ==
LOC: RADCTMAIN 15:31
PROVIDERS: ATTEND Family Medicine
DX: Z12.2 Encounter for screening for malignant neoplasm of respiratory organs (principal); R91.1 Solitary pulmonary nodule; F17.210 Nicotine dependence, cigarettes, uncomplicated